=== PATIENT | female | born 1975 | race Caucasian/White ===

== ENCOUNTER → 2023-03-03 11:13 | Outpatient (CLI) | payer SELFPAY ==
--- NOTE | ~2023-03-03 | US_ITS ---
EXAMINATION: US thyroid DATE: 03/03/2023 11:32 INDICATION: Iodine deficiency related diffuse (endemic) goiter TECHNIQUE: Multiple ultrasound images of the thyroid were obtained. COMPARISON: 04/04/2015 FINDINGS: The right thyroid lobe measures 10.3 x 4.4 x 5.8 cm. The left is not visualized and reportedly has b een resected in the interval. 3.6 cm solid hypoechoic nodule which is wider than tall with smooth mar gins and without echogenic foci (TI-RADS 4, moderately suspicious , FNA if >=1.5 cm, annual followup is >=1 cm). There is normal echotexture, echogenicity and vascular flow throughout the surrounding ri ght thyroid lobe. IMPRESSION: 1. Significant interval enlargement of the right thyroid lobe post interval left thyroidectomy. 2. 3.6 similar TI RADS 4 right thyroid nodule for which ultrasound-guided fine-needle aspiration woul d be recommended. Reviewed, dictated and finalized at location A. IMPRESSION: 1. Significant interval enlargement of the right thyroid lobe post interval lef t thyroidectomy. 2. 3.6 similar TI RADS 4 right thyroid nodule for which ultrasound-guided fine- needle aspiration would be recommended.
== END ==
PROVIDERS: PCP Family Medicine; Visit Provider Family Medicine
DX: E01.0 Iodine-deficiency related diffuse (endemic) goiter (principal)
CPT/HCPCS: 76536

== ENCOUNTER 2023-05-13 12:43 | Outpatient (CLI) | payer SELFPAY ==
--- NOTE | ~2023-05-13 | US_ITS ---
EXAMINATION: US FNA w image guidance DATE: 05/13/2023 13:47 INDICATION: Right thyroid nodule. TECHNIQUE: The procedure and its benefits and risks were discussed with the patient. Risks specifically discusse d included bleeding. The patient verbalized understanding of the risks and agreed to proceed. The nec k was prepped and draped in the usual sterile manner. 1% lidocaine was used for local anesthesia. 6 passes were made with a 25G needle into the lesion under ultrasound guidance. There were no immedia te complications. FINDINGS: Grayscale ultrasound images demonstrate needles advanced into a 3.4 cm nodule in right thyroid lobe f or biopsy. IMPRESSION: 1. Ultrasound-guided fine needle aspiration of a right thyroid nodule. Reviewed, dictated and finalized at location A.
== END 2023-05-13 12:44 | disposition home or self-care (01) ==
PROVIDERS: PCP Family Medicine; Visit Provider Internal Medicine
DX: E04.2 Nontoxic multinodular goiter (principal)
CPT/HCPCS: 10005; 88173; 88305

== ENCOUNTER 2024-12-21 10:31 | Outpatient (CLI) | payer BC, SELFPAY ==
--- NOTE | ~2024-12-21 | XR_ITS ---
Right Hand Technique: PA and lateral views were obtained. Clinical History: Pain Findings: No acute fracture or dislocation is seen. Osseous alignment is anatomic. Joint spaces are p reserved. Soft tissues are unremarkable. Impression: Unremarkable right hand. Reviewed, dictated and finalized at location M. Impression: Unremarkable right hand.
== END 2024-12-21 10:32 | disposition home or self-care (01) ==
LOC: MICIMG 10:34
PROVIDERS: PCP Family Medicine; Visit Provider Student in an Organized Health Care Education/Training Program
DX: M79.641 Pain in right hand (principal)
CPT/HCPCS: 73120

== ENCOUNTER 2025-05-02 09:12 | Outpatient (CLI) | payer OTHER, SELFPAY ==
--- OUTSIDE RECORDS SUMMARY | 2025-05-02 09:43 | XMS_ITS | Clinical Summary ---
Author Organization [facility] Address [address] [place] [address] Care Team Providers Care Fur Trimmer Name Role Phone Eliel Freedman MD Primary Care Provider [phone] Source Comments [facility],non-owned Affiliates and Associated Physician Practices is amultiple site organization consisting of ambulatory clinics and hospital sitesin [place], [place], [place] and [place]. This disclosure is being madepursuant to the Care Everywhere program and may not contain all information available regarding this patient. Last updated 18.[facility] Allergies No known active allergies Medications * Be aware that medications may not be up to date on this document. Alwaysverify current medications with the patient. No known medications Social History Tobacco Use Types Packs/Day Years Used Date Smoking Tobacco: Never Assessed Comments Unknown Sex and Gender Information Value Date Recorded Sex Assigned at Not on file Legal Sex Female 4:43 PM CDT Gender Identity Not on file Sexual Orientation Not on file Plan of Treatment Health Maintenance Due Date Last Done Comments COLOGUARD (AGES 45-75) - COL ON CA SCREENING 1975 COLON MONITORING 1973 COLONOSCOPY - COLON CA SCREENING 1973 CT COLONOGRAPHY - COLON CA SCREENING 1975 Colorectal Cancer Screening 1973 FIT - COLON CA SCREENING 1973 FLEX SIG - COLON CA SCREENING 1973 LIPID TESTING 1975 MAMMOGRAM 1973 HIV SCREENING 1988 HEPATITIS C SCREENING 08/04/1991 DTAP/TDAP/TD VACCINES (1 - Tdap) 1992 HEPATITIS B VACCINE (1 of 3 - 19+ 3-dose series) 1992 PNEUMOCOCCAL VACCINE 50+ (1 of 1 - PCV) 2023 ZOSTER VACCINE (1 of 2) 2023 DEPRESSION SCREENING 08/02/2024 COVID-19 VACCINE (1 - 2023-2 5 season) 2025 INFLUENZA VACCINE (#1) 2025 HIB VACCINE Aged Out No longer eligi ble based on patient's age to complete this topic HPV VACCINE Aged Out No longer eligi ble based on patient's age to complete this topic MENINGOCOCCAL (Group B) VACC INE SHARED DECISION-MAKING Aged Out No longer eligibl e based on patient's age to complete this topic MENINGOCOCCAL GROUPS A/C/Y/W VACCINE Aged Out No longer eligible b ased on patient's age to complete this topic Insurance [facility] Address: [address] [address] Care Teams Fur Trimmer Relationship Specialty Start Date End Date Eliel Freedman MD [address] [place] [address] PCP - General Internal Medicine 10/25/17
--- OUTSIDE RECORDS SUMMARY | 2025-05-02 09:43 | XMS_ITS | Encounter Summary ---
Author Organization [facility] Address [address] [place] [address] Care Team Providers Care Charging Operator Name Role Phone Naila Haley MD Primary Care Provider [phone] Encounter Details Date Type Department Care Team (Late st Contact Info) Description 03/01/2025 Results Follow-Up [facility] [address] [phone] Xenia Carlisle MA T-SPOT.TB Blood Social History Tobacco Use Types Packs/Day Years Used Date Smoking Tobacco: Never Assessed Comments No Sex and Gender Information Value Date Recorded Sex Assigned at Not on file Legal Sex Female 3:24 PM HYBRID DERIVATIVES TRADER Gender Identity Female 10/07/2021 3:12 PM HYBRID DERIVATIVES TRADER Sexual Orientation Straight 10/07/2021 3: 12 PM HYBRID DERIVATIVES TRADER documented as of this encounter Plan of Treatment Not on file documented as of this encounter Visit Diagnoses Not on filedocumented in this encounter Care Teams Charging Operator Relationship Specialty Start Date End Date Naila Haley MD PCP - General Family Medicine 08/04/21 documented as of this encounter
--- OUTSIDE RECORDS SUMMARY | 2025-05-02 09:43 | XMS_ITS | Clinical Summary ---
Author Organization [facility] Address [address] [place] [address] Care Team Providers Care Coffee Attendant Name Role Phone Naila Haley MD Primary Care Provider [phone] Allergies No known active allergies Encounters Date Type Department Care Team Description 03/01/2025 Results Follow-Up [address] [address] Xenia Carlisle MA T-SPOT.TB Blood 02/26/2025 9:35 AM CDT Lab [facility] [address] [place] [id number] Pre-employment health screening examination 02/26/2025 Orders Only [address] [address] Paul Zamora MD Pre-employment health screening examination (Primary Dx) from Last 3 Months Immunizations Immunization Administration Dates Next Due Influenza, Quadrivalent, Annamaria l Culture-based MDCK, Preservative Free, Antibiotic Free, Intramuscular 05/03/2018,05/04/2017 Influenza, Quadrivalent, Spl it, Preservative Free, Intramuscular 05/17/2016 Influenza, Trivalent, IM (MDV) 04/20/2020,2018 Influenza, Trivalent, Preservative Free, Intramu scular 05/02/2015 Influenza, Unspecified 05/21/2014,05/02/2012 MMR 01/01/1999 Td, adsorbed 01/01/1999,02/25/1988 Varicella 11/29/2015,11/01/2015 Surgical History Surgery Date Site/Laterality Comments BREAST BIOPSY 12/23/2021 Right BREAST BIOPSY 12/23/2021 Left BREAST BIOPSY 12/23/2021 Right Social History Tobacco Use Types Packs/Day Years Used Date Smoking Tobacco: Never Assessed Comments No Sex and Gender Information Value Date Recorded Sex Assigned at Not on file Legal Sex Female 3:24 PM AUTOMATIC GRINDING MACHINE OPERATOR Gender Identity Female 10/07/2021 3:12 PM AUTOMATIC GRINDING MACHINE OPERATOR Sexual Orientation Straight 10/07/2021 3: 12 PM AUTOMATIC GRINDING MACHINE OPERATOR Obstetrics History Para Term AB IAB SAB Ectopic Multiple Livin g Live Births 0 0 0 0 0 0 0 0 0 0 0 Plan of Treatment Health Maintenance Due Date Last Done Comments Cervical Cancer Screening 1973 Colon Cancer Screening-Colonoscopy 1973 Depression Screening 1973 Hepatitis C Screening 1973 Hepatitis B Screening 1991 Regular Well Visit/Exam 18-64 1991 DTaP/Tdap/Td Vaccine (1 - Tdap) 01/02/1999 01/01/1999, 02/25/1988 Breast Cancer Screening-Mammogram 03/26/2023 03/26/2022, 11/05/2021, 10/07/2021 Zoster Vaccine (1 of 2) 2023 Covid-19 Vaccine (4 - season) 2025 05/14/2021, 08/09/2020, 07/19/2020 Influenza Vaccine (#1) 2025 0, 04/07/2019, 05/03/2018, Additional history exists Pneumococcal vaccine <65 Aged Out No longer eligible based on patient's age to complete this topic Procedures Procedure Name Priority Date/Time Associated Diagnosis Comments T-SPOT.TB Routine 02/26/2025 9:27 AM CDT Pre-employment health screening examination DIAGNOSTIC MAMMOGRAM BILATERAL W [place] Schedule Routine, Read Routine (OP Routine) 03/26/2022 9:10 AM CDT Abnormal mammogram from Last 3 Months or Most Recently Relevant to Health Maintenance Results * T-SPOT.TB Blood (02/26/2025 9:27 AM CDT) [facility] T-SPOT.TB Negative SeeBelow Comment: Normal Value: Negative A negative test result does not exclude the possibility of exposure to or infection with Mycobacterium tuberculosis (M. tuberculosis). Patients with recent exposure to TB infected individuals exhibiting a negative T-SPOT.TB result should be considered for retesting within 6 weeks or if other relevant clinical symptoms indicate. Results from T-SPOT.TB testing must be used in conjunction with each individual's epidemiological history, current medical status, and results of other diagnostic evaluations. The T-SPOT.TB test is qualitative and results are reported as positive, borderline or negative, given that the test controls perform as expected. In line with the Centers for Disease Control and Prevention's 2010 recommendation to report quantitative measurements alongside the qualitative result, the laboratory provides spot counts for informational purposes only. The T-SPOT.TB test should not be interpreted as a quantitative test. T-SPOT.TB Panel A Spot Count 0 [facility] T-SPOT.TB Panel B Spot Count 1 [facility] T-SPOT.TB Negative Control Passed [facility] T-SPOT.TB Positive Control Passed [facility] Comment: Test Performed at: [facility] [address] [place] [id number] SONYA HERNANDEZ,PHD Blood 02/26/2025 9:27 AM CDT 02/26/2025 9:43 AM CDT Narrative [facility]NOTE 3[facility] - 02/28/2025 5:13 PM CDT Bill to [place] [id number] Patient is employed by/enrolled at:->[facility] Paul Zamora MD LAB MICROBIOLOGY - GENERAL OR DERABLES Final Result [facility] [address] [facility] Department [place] [address] * Diagnostic Mammogram Bilateral [place] (03/26/2022 9:10 AM CDT) Anatomical Region Laterality Modality Breast Bilateral Mammography 03/26/2022 9:12 AM CDT Narrative 03/26/2022 9:13 AM CDT EXAM DESCRIPTION: DIAGNOSTIC MAMMOGRAM BILATERAL W [place] REASON FOR STUDY: 46-year-old woman comes in today for follow-up after bilateral benign breast biopsies performed in November. COMPARISON: 12/23/2021, 11/05/2021, 10/07/2021, 10/22/2017. TECHNIQUE: CC and MLO digital breast tomosynthesis of the both breasts with C view was performed. FINDINGS: DENSITY: There are scattered areas of fibroglandular density. Expected post biopsy changes are identified in both breasts. The biopsy marker clips are in unchanged position. Scattered benign calcifications are noted bilaterally. There are no new suspicious findings in either breast on mammogram. IMPRESSION: Expected post biopsy changes in both breasts. No new suspicious findings identified. Continued physical examination recommended, and annual bilateral screening mammography in 12 months. BIRADS: 2 - Benign The patient was notified of the results at the time of the examination. THIS IS AN ELECTRONICALLY VERIFIED FINAL REPORT 03/26/2022 9:13 AM - Electronically signed by Harley Wharton M.D. RL: JAIME Report ID: [id number] Reading Location: [facility] Jesús Gilmore MD IMG MAMMO PROCEDURES Final Result from Last 3 Months or Most Recently Relevant to Health Maintenance Insurance [employer] BREAST AND CERVICAL CANCER PROGRAM Care Teams Coffee Attendant Relationship Specialty Start Date End Date Naila Haley MD PCP - General Family Medicine 08/04/21
--- OUTSIDE RECORDS SUMMARY | 2025-05-02 09:43 | XMS_ITS | Clinical Summary ---
Author Organization [facility] Address [address] [place] [phone] Phone Care Team Providers Care Prosthetic Technician Name Role Phone Unavailable Primary Care Provider Unavailabl e Immunizations Immunization Administration Dates Next Due (PFIZER)(12 YR UP) COVID-19 VACCINE - EMERGENCY USE AUTHORIZATION, MRNA, [id number](PF) 30 MCG/0.3 ML IM SUSP 08/09/2020,07/19/2020 Influenza Seasonal Unspecified Formulation IM ,04/07/2019 Social History Tobacco Use Types Packs/Day Years Used Date Smoking Tobacco: Never Assessed Comments Unknown Sex and Gender Information Value Date Recorded Sex Assigned at Not on file Legal Sex Female 11:14 AM CDT Gender Identity Not on file Sexual Orientation Not on file Plan of Treatment Health Maintenance Due Date Last Done Comments DTAP/TDAP/TD VACCINES (1 - Tdap) 1992 HEPATITIS B VACCINES (1 of 3 - 19+ 3-dose series) 1992 HPV/Cotest (21-29) 1994 CERVICAL CANCER SCREENING 2003 HPV/Cotest (30-65) 2003 PAP SMEAR 2003 BREAST CANCER SCREENING 2013 COLORECTAL SCREENING 2018 Colorectal Cancer Screening 2018 FIT-DNA Q 3 years 2018 FIT/FOBT Q 1 year 2018 Flex Sig/CT Colonography Q 5 years 2018 ZOSTER VACCINE (1 of 2) 2023 INFLUENZA VACCINE (#1) 2025 0, 04/02/2020, 04/07/2019 COVID-19 Vaccine (2024- season) 04/02/202503/2021, 07/19/2020
--- NOTE | 2025-05-02 10:09 | ECHO_ITS ---
Patient Info Name: Constanza Romero Age: 49 years : 1975 Gender: Female Ht: 65 in Wt: 229 lbs BSA: 2.23 m2 HR: 92 bpm BP: 186 / 92 mmHg Heart Rhythm: Sinus Rhythm Technical Quality: Fair Exam Date: 05/02/2025 10:24 AM Patient Status: O Admit Date: 05/02/2025 Exam Type: CA echo doppler color flow Complete two-dimensional, color flow and Doppler transthoracic echocardiogram is performed. Spar Machine Operator: Nel Corbin Attending Provider: Renetta Bran Summary 1. Complete two-dimensional, color flow and Doppler transthoracic echocardiogram is performed. 2. Left ventricular chamber dimension is normal. 3. Left ventricular systolic function is normal, estimated at 65-70. 4. The left ventricular diastolic function is grade I diastolic dysfunction. 5. E/e' 17 is elevated. 6. There is mild aortic valve sclerosis. 7. There is trace tricuspid valve regurgitation. 8. No pulmonary hypertension, estimated pulmonary arterial systolic pressure is 18 mmHg. Left Ventricle E/e' 17 is elevated. Left ventricular chamber dimension is normal. Left ventricular systolic function is normal, estimated at 65-70. The left ventricular diastolic function is grade I diastolic dysfunction. Right Ventricle Right ventricular chamber dimension is normal. Right ventricular systolic function is normal and with normal TAPSE 2.7 cm. Left Atria Left atrial chamber dimension is normal. Right Atria Right atrial chamber dimension is normal. Aortic Valve The aortic valve is trileaflet. There is mild aortic valve sclerosis. There is no aortic valve stenosis. There is no aortic valve regurgitation. Pulmonic Valve There is no pulmonic regurgitation. Mitral Valve There is no mitral valve stenosis. There is no mitral valve regurgitation. Tricuspid Valve There is trace tricuspid valve regurgitation. No pulmonary hypertension, estimated pulmonary arterial systolic pressure is 18 mmHg. Pericardium/Pleural There is no pericardial effusion. Inferior Vena Cava Normal inferior vena cava with >50% collapse upon inspiration consistent with normal right atrial pressure, 5 mmHg. Aorta The aortic root size at the sinus of Valsalva is normal. Left Ventricular Outflow Tract Name Value Normal LVOT 2D LVOT Diameter 2.0 cm LVOT Doppler LVOT Peak Velocity 129 cm/s LVOT Peak Gradient 7 mmHg LVOT Mean Gradient 3 mmHg LVOT VTI 25 cm LVOT VTI/AV VTI Ratio 0.8 LVOT Stroke Volume 76 ml LVOT CO 6.5 l/min LVOT CI 2.9 l/min/m2 Pulmonic Valve Name Value Normal RVOT Doppler RVOT Peak Velocity 111 cm/s RVOT Peak Gradient 5 mmHg PV Doppler PV Peak Velocity 129 cm/s PV Peak Gradient 7 mmHg Mitral Valve Name Value Normal MV Diastolic Function MV E Peak Velocity 94 cm/s MV A Peak Velocity 117 cm/s MV E/A 0.8 MV Decel Time (PW) 195 ms MV Annular TDI MV E/e' (Septal) 16.7 MV E/e' (Lateral) 18.9 MV E/e' (Average) 17.8 Tricuspid Valve Name Value Normal TV Regurgitation Doppler TR Peak Velocity 177 cm/s TR Peak Gradient 13 mmHg Estimated PAP/RSVP RA Pressure 5 mmHg <=5 PA Systolic Pressure 18 mmHg <36 RV Systolic Pressure 18 mmHg <36 TV Annular TDI TV Lateral Gianna s' Velocity 22.6 cm/s >=9.5 Aorta Name Value Normal Ascending Aorta Ao Root Diameter (MM) 2.9 cm Ao Root Diam Index (MM) 1.3 cm/m2 Aortic Valve Name Value Normal AV Doppler AV Peak Velocity 190 cm/s AV Peak Gradient 14 mmHg AV Mean Gradient 9 mmHg AV VTI 33 cm AV Area (Cont Eq VTI) 2.3 cm2 >=3.0 AV Area (Cont Eq Sadi) 2.1 cm2 AV DI (Sadi) 0.68 AV Regurgitation 2D LVOT Area 3.1 cm2 Ventricles Name Value Normal LV Dimensions 2D/MM IVS Diastolic Thickness (2D) 0.9 cm 0.6-1.0 LVID Diastole (2D) 5.1 cm 3.8-5.2 LVIW Diastolic Thickness (2D) 0.8 cm 0.6-0.9 LVID Systole (2D) 3.4 cm 2.2-3.5 LVOT Diameter 2.0 cm LV Mass (2D Cubed) 158.71 g 67.00-162.00 LV Mass Index (2D Cubed) 71 g/m2 43-95 Relative Wall Thickness (2D) 0.32 <=0.42 LV Fractional Shortening/Ejection Fraction 2D/MM LV Fractional Shortening (2D) 34 % 27-45 LV EF (2D Teichholz) 62 % LV Diastolic Volume (4C MOD) 59 ml LV EF (4C MOD) 68 % LV Diastolic Volume (2C MOD) 64 ml LV EF (2C MOD) 68 % LV Diastolic Volume (BP MOD) 62 ml 46-106 LV Diastolic Volume Index (BP MOD) 28 ml/m2 29-61 LV Systolic Volume (BP MOD) 20 ml 14-42 LV Systolic Volume Index (BP MOD) 9 ml/m2 8-24 LV EF (BP MOD) 68 % 54-74 LV Diastolic Length (4C) 7.1 cm LV Systolic Length (4C) 5.4 cm LV Stroke Volume (4C MOD) 40 ml Atria Name Value Normal LA Dimensions LA Dimension (MM) 5.0 cm 2.7-3.8 LA Volume (4C A-L) 46 ml LA Volume (BP A-L) 50 ml RA Dimensions RA Area (4C) 11.0 cm2 <=18.0 Report Signatures
== END 2025-05-02 09:13 | disposition home or self-care (01) ==
PROVIDERS: PCP Family Medicine; Visit Provider Student in an Organized Health Care Education/Training Program
DX: R01.1 Cardiac murmur, unspecified (principal); I35.0 Nonrheumatic aortic (valve) stenosis
CPT/HCPCS: 93306

== ENCOUNTER 2025-06-07 09:53 | Outpatient (CLI) | payer OTHER, SELFPAY ==
--- NOTE | ~2025-06-07 | US_ITS ---
EXAM/PROCEDURE: US thyroid HISTORY: E04.2 - Nontoxic multinodular goiter COMPARISON: March 03, 2023 TECHNIQUE: Thyroid ultrasound FINDINGS: Right local 9.3 x 5.5 x 5.3 cm. Complex 3.5-3 0.2 x 3.2 cm TI-RADS 4 lesion in the right lobe is not significantly changed from the previous exam given variation in measurement. Measurement on the exam from 2022 was 3.6 cm. Left lobe: Apparent removal. IMPRESSION: 1. No gross interval change in 3.5 cm TI-RADS 4 mass in the right lobe as above. 2. Patient status post left thyroidectomy. Reviewed, dictated and finalized at location A. ANTING MACHINE CREW IMPRESSION: 1. No gross interval change in 3.5 cm TI-RADS 4 mass in the right lobe as above . 2. Patient status post left thyroidectomy.
== END 2025-06-07 09:54 | disposition home or self-care (01) ==
LOC: MICIMG 09:54
PROVIDERS: PCP Student in an Organized Health Care Education/Training Program; Visit Provider Student in an Organized Health Care Education/Training Program
DX: E04.1 Nontoxic single thyroid nodule (principal); E89.0 Postprocedural hypothyroidism
CPT/HCPCS: 76536